=== PATIENT | male | born 1985 | race Caucasian/White ===

== ENCOUNTER 2020-02-17 15:31 | Emergency (ER) | payer MEDICAID ==
[~2020-02-17] VITALS: Ht 180.3 cm; Wt 95.5 kg
[2020-02-17 16:04] LABS: BASOPHILS # (AUTO) 0.1 X10'3 (0-0.2); BASOPHILS % (AUTO) 0.8 % (0-1); EOSINOPHILS # (AUTO) 0.1 X10'3 (0-0.9); EOSINOPHILS % (AUTO) 1.9 % (0-6); HEMATOCRIT 45.4 % (42.0-52.0); HEMOGLOBIN 15.9 g/dl (14.0-17.9); LYMPHOCYTES # (AUTO) 2.2 X10'3 (1.1-4.8); LYMPHOCYTES % (AUTO) 32.9 % (21-51); MEAN CORPUSCULAR HEMOGLOBIN 30.8 PG (27.0-31.0); MEAN CORPUSCULAR HGB CONC 35.1 g/dL (33.0-36.5); MEAN CORPUSCULAR VOLUME 87.8 FL (78-98); MEAN PLATELET VOLUME 7.6 FL (7.4-10.4); MONOCYTES # (AUTO) 0.7 X10'3 (0-0.9); MONOCYTES % (AUTO) 11.1 % (2-12); NEUTROPHILS # (AUTO) 3.5 X10'3 (1.8-7.7); NEUTROPHILS % (AUTO) 53.3 % (42-75); PLATELET COUNT 244 X10'3 (140-440); RED BLOOD COUNT 5.17 X10'6 (4.70-6.10); RED CELL DISTRIBUTION WIDTH 12.7 % (11.5-14.5); WHITE BLOOD COUNT 6.6 X10'3 (4.5-11.0)
[2020-02-17 16:30] LABS: ALANINE AMINOTRANSFERASE 28 U/L (12-78); ALBUMIN 4.7 G/DL (3.4-5.0); ALBUMIN/GLOBULIN RATIO 1.3 (1.1-1.5); ALKALINE PHOSPHATASE 58 IU/L (46-116); ANION GAP 13 (8-16); ASPARTATE AMINO TRANSFERASE 15 U/L (10-37); BILIRUBIN,TOTAL 0.6 MG/DL (0.1-1.0); BLOOD UREA NITROGEN 14 MG/DL (7-18); BUN/CREATININE RATIO 12.5 (5.4-32.0); CHLORIDE 102 MMOL/L (99-107); CREATININE 1.12 MG/DL (0.60-1.10); GLUCOSE 110 MG/DL (70-104); SODIUM 138 MMOL/L (135-145); TOTAL CARBON DIOXIDE 23.5 MMOL/L (24-32); TOTAL PROTEIN 8.3 G/DL (6.4-8.2); eGFR 76 ML/MIN
[2020-02-17 16:39] LABS: ETHANOL < 0.010 GM/DL (0.0-0.010)
[2020-02-17 16:47] LABS: URINE AMPHETAMINE SCREEN NEGATIVE (Neg); URINE BARBITUATE SCREEN NEGATIVE (Neg); URINE BENZODIAZEPINES SCREEN NEGATIVE (Neg); URINE CANNABINOID SCREEN NEGATIVE (Neg); URINE COCAINE SCREEN NEGATIVE (Neg); URINE METHADONE SCREEN NEGATIVE (Neg); URINE OPIATE SCREEN NEGATIVE (Neg); URINE PHENCYCLIDINE SCREEN NEGATIVE (Neg)
[2020-02-17] MEDS ORDERED: magnesium oxide 400mg tablet PO ONE ×2 (16:50→17:42)
[2020-02-17] MEDS ORDERED: potassium 10mEq/100ml NS w/LIDOcaine (10mg/bag) IV ONE (16:50)
[2020-02-17] MEDS ORDERED: potassium Cl 20 mEq SR tablet PO ONE (16:50)
[2020-02-17] MEDS ORDERED: magnesium 2GM in 50ml NS 50 ML IV ONE (16:50)
[2020-02-17] MEDS ORDERED: potassium CL 10mEq/100ml bag 100 ML IV ONE (17:00)
[2020-02-17] MEDS ORDERED: metoprolol tartrate 25mg tablet PO ONE (17:15)
[2020-02-17] MEDS ORDERED: metoprolol tartrate 50mg tablet PO ONE (17:15)
[2020-02-17] MEDS ORDERED: MAGN200T8 PO (17:18)
[2020-02-17] MEDS ORDERED: POTA20TA19 PO (17:18)
[2020-02-17 18:20] VITALS: BP 124/85
== END 2020-02-17 18:37 | disposition home or self-care (01) ==
LOC: ER 15:32
DX: E87.6 Hypokalemia (principal); R07.89 Other chest pain; R00.2 Palpitations; F41.9 Anxiety disorder, unspecified; F12.90 Cannabis use, unspecified, uncomplicated; Z88.0 Allergy status to penicillin; Z79.899 Other long term (current) drug therapy
CPT/HCPCS: 36415; 71045; 80053; 80305; 80320; 83735; 83880; 84484; 85025; 93005; 96365; 96366; 96368; 99285; J3475; J3480

== ENCOUNTER 2021-10-23 00:08 | Emergency (ER) | payer SELFPAY ==
[~2021-10-23] VITALS: Ht 180.3 cm; Wt 100.0 kg
[~2021-10-23 00:08] MED LIST: MAGN200T8 PO
[2021-10-23 01:05] LABS: CLARITY,URINE CLEAR (Clear); COLOR,URINE YELLOW (Yellow); GLUCOSE, URINE NEGATIVE (Neg); KETONES,URINE >=80 mg/dl (Neg); LEUKOCYTE ESTERASE ,URINE NEGATIVE (Neg); NITRITES, URINE NEGATIVE (Neg); OCCULT BLOOD,URINE NEGATIVE (Neg); PROTEIN,URINE NEGATIVE (Neg); UROBILINOGEN,URINE 0.2 E.U/dL (0.2-1.0)
[2021-10-23 01:07] LABS: BASOPHILS % (AUTO) 0.3 % (0-1); EOSINOPHILS % (AUTO) 0.1 % (0-6); HEMATOCRIT 45.1 % (42.0-52.0); HEMOGLOBIN 15.6 g/dl (14.0-17.9); LYMPHOCYTES # (AUTO) 0.9 X10'3 (1.1-4.8); LYMPHOCYTES % (AUTO) 6.1 % (21-51); MEAN CORPUSCULAR HGB CONC 34.6 g/dL (33.0-36.5); MEAN CORPUSCULAR VOLUME 86.6 FL (78-98); MEAN PLATELET VOLUME 7.4 FL (7.4-10.4); MONOCYTES # (AUTO) 0.7 X10'3 (0-0.9); MONOCYTES % (AUTO) 4.6 % (2-12); NEUTROPHILS # (AUTO) 13.2 X10'3 (1.8-7.7); NEUTROPHILS % (AUTO) 88.9 % (42-75); PLATELET COUNT 272 X10'3 (140-440); RED BLOOD COUNT 5.21 X10'6 (4.70-6.10); RED CELL DISTRIBUTION WIDTH 12.7 % (11.5-14.5); WHITE BLOOD COUNT 14.8 X10'3 (4.5-11.0)
[2021-10-23 01:09] LABS: UA COLLECTION TYPE CLN CATCH MIDSTREAM
[2021-10-23 01:24] LABS: ALANINE AMINOTRANSFERASE 32 U/L (12-78); ALBUMIN 4.4 G/DL (3.4-5.0); ALBUMIN/GLOBULIN RATIO 1.3 (1.1-1.5); ALKALINE PHOSPHATASE 54 IU/L (46-116); ANION GAP 15 (8-16); ASPARTATE AMINO TRANSFERASE 17 U/L (10-37); BILIRUBIN,TOTAL 0.8 MG/DL (0.1-1.0); BLOOD UREA NITROGEN 13 MG/DL (7-18); BUN/CREATININE RATIO 14.3 (5.4-32.0); CALCIUM 9.1 MG/DL (8.5-10.1); CHLORIDE 104 MMOL/L (99-107); CREATININE 0.91 MG/DL (0.60-1.10); GLUCOSE 132 MG/DL (70-104); LIPASE 80 U/L (73-393); POTASSIUM 3.7 MMOL/L (3.5-5.1); SODIUM 138 MMOL/L (135-145); TOTAL CARBON DIOXIDE 19.1 MMOL/L (24-32); TOTAL PROTEIN 7.9 G/DL (6.4-8.2); eGFR > 90 ML/MIN
[2021-10-23] MEDS ORDERED: normal saline 1000ML IV soln IVB ONE ×2 (04:25→06:45)
[2021-10-23] MEDS ORDERED: ondansetron/PF 4mg/2ml inj IV ONE (05:10)
[2021-10-23] MEDS ORDERED: morphine 4 MG/ML inj SYRINge IV ONE ×2 (05:10→08:20)
[2021-10-23] MEDS ORDERED: ceFOXitin 1 GM/D5W 50mL IVPB 1,000 GM in normal saline 100ml IV soln 100 ML IV ONE (05:10)
[2021-10-23] MEDS ORDERED: ceFOXitin inj 1,000 MG in normal saline 100ml IV soln 100 ML IV ONE (05:40)
[2021-10-23] MEDS ORDERED: LIDOcaine 0.5% (5mg/ml) 50ml vial ONE (06:45)
[2021-10-23] MEDS ORDERED: BUPIVAcaine 0.5% inj/PF 30 ML ONE (06:46)
[2021-10-23] MEDS ORDERED: ondansetron/PF 4mg/2ml inj IM ONE (07:40)
[2021-10-23] MEDS ORDERED: ESCI20TA PO (08:10)
[2021-10-23] MEDS ORDERED: normal saline 1000ml 1,000 ML IV SCH (08:30)
[2021-10-23] MEDS ORDERED: ondansetron/PF 4mg/2ml inj IV PRN ×2 (08:30→13:25)
[2021-10-23] MEDS ORDERED: morphine 4 MG/ML inj SYRINge IV PRN ×2 (08:30→13:25)
[2021-10-23] MEDS ORDERED: sevoflurane 250ml liquid IH ONE (12:01)
[2021-10-23] MEDS ORDERED: rocuronium 10mg/ml inj IV ONE (12:05)
[2021-10-23] MEDS ORDERED: fentaNYL/PF 50MCG/1 ML 2ML syringe ONE (12:05)
[2021-10-23] MEDS ORDERED: midazolam 1 mg/ML 2ml injection ONE (12:05)
[2021-10-23] MEDS ORDERED: propofol inj 20 ML IV ONE (12:05)
[2021-10-23] MEDS ORDERED: BUPIVAcaine 0.5% inj/PF 30 ml vial IJ ONE (12:46)
[2021-10-23] MEDS ORDERED: dexamethasone sod phosphate 4mg/ml inj. ONE (13:01)
[2021-10-23] MEDS ORDERED: ondansetron/PF 4mg/2ml inj ONE (13:01)
[2021-10-23] MEDS ORDERED: glycopyrrolate 0.2mg/ml inj ONE (13:03)
[2021-10-23] MEDS ORDERED: neostigmine methylsulfate 1 MG/ML 10ml vial ONE (13:03)
[2021-10-23 13:25] VITALS: BP 103/55
[2021-10-23] MEDS ORDERED: proCHLORperazine 10 MG/2 ml inj IV PRN (13:25)
[2021-10-23] MEDS ORDERED: meperidine/PF 25mg/ml syringe IV PRN ×3 (13:25)
[2021-10-23] MEDS ORDERED: morphine 2 MG/ML inj. syringe IV PRN (13:25)
[2021-10-23] MEDS ORDERED: ringers solution, lacted 1,000 ML IV SCH (13:25)
[2021-10-23] MEDS ORDERED: HYDROcodone/acetaminophen 5mg/325mg tablet PO ONE (13:25)
--- NOTE | 2021-10-23 13:25 | NUR ---
PT ARRIVED TO [facility]IA [facility], ACCOMPANIED BY DR JACKSON-ANESTHESIA REPORT GIVEN, PT WAKING UP, DENIES PAIN, VSS, LAP SITES X4 -CDI, SDCS ON, PIV 20G R A/C
[2021-10-23 13:35] VITALS: BP 117/75
[2021-10-23 13:45] VITALS: BP 131/78
[2021-10-23 13:55] VITALS: BP 126/77
[2021-10-23 14:00] VITALS: BP 126/77
[2021-10-23 14:30] VITALS: BP 128/75
--- NOTE | 2021-10-23 14:30 | NUR ---
PT UP AND GETTING DRESSED, PAIN MINIMAL-GIVEN 1 CORNING FOR TRIP HOME, LAP SITES X4 CDI, PIV D/CD-CANULA INTACT, SCDS OFF, VSS, D/C INSTRUCTIONS GIVEN TO PT AND -ALL QUESTIONS ANSWERED, TAKEN VIA W/C TO VEHICLE FOR TRANSPORT HOME WITH ALL BELONGINGS.
== END 2021-10-23 14:30 | disposition home or self-care (01) ==
LOC: ER 00:09
DX: K35.80 Unspecified acute appendicitis (principal); Z20.822 Contact with and (suspected) exposure to COVID-19; F12.90 Cannabis use, unspecified, uncomplicated; Z88.0 Allergy status to penicillin; Z79.899 Other long term (current) drug therapy
CPT/HCPCS: 36415; 44970; 74176; 80053; 81003; 83690; 84145; 85025; 87811; 96361; 96365; 96372; 96375; 96376; 99285; J0694; J1100; J2250; J2270; J2405; J2704; J2710; J3010; J3490; J7030; J7120; S0020; Z7506; Z7508; Z7512; A4215; A4618